=== PATIENT | male | born 1960 | race Hispanic/Latino ===

== ENCOUNTER 2020-10-24 08:10 | Outpatient (CLI) | payer BC | END 2020-10-24 08:11 | disposition home or self-care (01) | LOC: BICULT 08:10 | PROVIDERS: ATTEND Nurse Practitioner Family | DX: R74.8 Abnormal levels of other serum enzymes (principal); K76.0 Fatty (change of) liver, not elsewhere classified | CPT/HCPCS: 76705 ==

== ENCOUNTER 2021-08-02 12:29 | Emergency (ER) | payer BC ==
[2021-08-02 21:30] LABS: SARS-CoV-2 PCR by NAA DETECTED (NotDetected)
== END 2021-08-02 13:58 | disposition home or self-care (01) ==
LOC: ERS 12:29
DX: U07.1 COVID-19 (principal); I10 Essential (primary) hypertension; E11.9 Type 2 diabetes mellitus without complications
CPT/HCPCS: 87804; 99283; U0003; U0005

== ENCOUNTER 2022-01-06 17:54 | Emergency (ER) | payer BC ==
[2022-01-06] MEDS ORDERED: Acetaminophen 500 MG TAB ONE (18:38)
[2022-01-06] MEDS ORDERED: Ibuprofen 200 MG TAB ONE (18:38)
== END 2022-01-06 18:42 | disposition home or self-care (01) ==
LOC: ERS 17:54
DX: U07.1 COVID-19 (principal); J06.9 Acute upper respiratory infection, unspecified; I10 Essential (primary) hypertension; E11.9 Type 2 diabetes mellitus without complications
CPT/HCPCS: 87804; 99283; U0003; U0005